=== PATIENT | male | born 1970 | race Caucasian/White ===

== ENCOUNTER 2020-03-15 09:03 | Emergency (ER) | payer BC, SELFPAY ==
[2020-03-15 09:04] VITALS: BP 169/102; PULSE 92; RESP 20; TEMP 36.9; O2SAT 95; BMI 43.4
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
== END 2020-03-15 09:44 | disposition home or self-care (01) ==
PROVIDERS: Emergency Provider Emergency Medicine
DX: Z04.1 Encounter for examination and observation following transport accident (principal); I10 Essential (primary) hypertension; Z79.899 Other long term (current) drug therapy
CPT/HCPCS: 99284